=== PATIENT | male | born 1955 | race Caucasian/White ===

== ENCOUNTER 2016-06-04 02:36 | Emergency (ER) | payer OTHER ==
[~2016-06-04] VITALS: Ht 167.6 cm; Wt 108.9 kg
[~2016-06-04 02:36] MED LIST: B-COMPLEX-VITA1 EACH PO; BYSTOLIC10 MG PO; MAGNESIUM OXID200 MG PO; OMEPRAZOLE40 M1 PO; PRAVASTATIN SOD20 MG PO; VALSARTAN-HCTZ1 EAC3 PO; VITAMIN D31000 UNIT PO
[2016-06-04 03:12] LABS: HEMATOCRIT 45.6 % (38.0-50.0); MCHC 34.4 G/DL (30.0-36.0); MCV 90.1 FL (86-99); PLATELET COUNT 192 K/uL (156-360); RBC DIS.WIDTH-CV 13.9 % (11.8-14.6); RBC DIS.WIDTH-SD 44.6 % (39-53); RED BLOOD COUNT 5.06 M/uL (4.00-5.50); WHITE BLOOD COUNT 11.5 K/uL (4.1-10.2)
[2016-06-04 03:22] LABS: CHLORIDE 106 mEq/L (99-109); POTASSIUM 3.4 mEq/L (3.7-5.4); SODIUM 142 mEq/L (136-147)
[2016-06-04 03:25] LABS: GLUCOSE 101 mg/dL (70-99)
[2016-06-04 03:26] LABS: ANION GAP 10 MEQ/L (2-14); TOTAL BILIRUBIN 1.1 mg/dL (0.0-1.0)
[2016-06-04 03:28] LABS: ALKALINE PHOSPHATASE 102 IU/L (3-129); GFR ESTIMATE (CALCULATED) > 59 mL/min/
[2016-06-04 03:28] LABS: ADD MIUA? NO; BILIRUBIN NEGATIVE; BLOOD NEGATIVE; COLOR YELLOW ((YELLOW)); GLUCOSE (STRIP) NEGATIVE; KETONES NEGATIVE; LEUKOCYTES NEGATIVE; NITRITE NEGATIVE; PH, URINE 7.5 (5-8); PROTEIN (STRIP) TRACE; SPECIFIC GRAVITY 1.027 (1.000-1.030); UCUL ADDED? NO
[2016-06-04 03:29] LABS: UREA NITROGEN (BUN) 19 mg/dL (9-23)
[2016-06-04 03:30] LABS: DIRECT BILIRUBIN 0.4 mg/dL (0.0-0.3)
[2016-06-04 03:32] LABS: LIPASE 63 U/L (1.0-51.0)
[2016-06-04 05:22] VITALS: BP 161/85
== END 2016-06-04 05:22 | disposition home or self-care (01) ==
LOC: EME 02:36
DX: R10.13 Epigastric pain (principal); I10 Essential (primary) hypertension; E78.5 Hyperlipidemia, unspecified; Z96.641 Presence of right artificial hip joint
CPT/HCPCS: 74177; 76705; 80053; 81003; 82248; 83690; 85027; 93005; 99281; 99285; J7030